=== PATIENT | female | born 1955 | race Two or more races ===

== ENCOUNTER 2025-02-20 09:15 | Inpatient (IN) | payer OTHER ==
[~2025-02-20] VITALS: Ht 154.9 cm; Wt 70.8 kg
[~2025-02-20 09:15] MED LIST: HYDROCHLOROTHIA50 MG PO; INTESTINEX680 MG PO; LEVO-T125 MCG PO; METFORMIN HCL1000 M1 PO; PANTOPRAZOLE SO40 MG PO; TOPROL XL100 M1 PO; TRAM1TAB98 PO; VALSARTAN-HCTZ1 EAC3 PO
[2025-02-20 10:15] VITALS: BP 174/85
[2025-02-20] MEDS ORDERED: ELIQUIS5 MG (10:21)
[2025-02-20] MEDS ORDERED: HYDRALAZINE HCL25 MG (10:22)
[2025-02-20] MEDS ORDERED: ROSUVASTATIN CA10 MG (10:22)
[2025-02-20] MEDS ORDERED: GLIPIZIDE XL2.5 MG (10:22)
[2025-02-20 10:32] LABS: COVID-19 AG NEGATIVE (NEGATIVE)
[2025-02-20 11:52] LABS: ALT/SGPT 28.0 U/L (12-78); AST/SGOT 21.0 U/L (15-37); BILIRUBIN TOTAL 0.71 mg/dL (0.3-1.2); BUN CREA RATIO 25.0 (7.0-25.0); CREATININE SERUM 1.42 mg/dL (0.55-1.02); GFR 36.57; GLOBULINA 3.9 G/DL (2.4-3.5); GLUCOSE FASTING 149.0 mg/dL (65-100); OSMOLALITY SERUM 298.0 MOSM/KG (275-295)
[2025-02-20 11:57] LABS: RH POSITIVE
[2025-02-26] MEDS ORDERED: BUPIVACAINE HCL 30 ML VIAL IJ ONE (11:30)
[2025-02-26] MEDS ORDERED: MORPHINE SULFATE 4 MG/ML CARTRIDGE IV ONE (11:30)
[2025-02-26] MEDS ORDERED: KETOROLAC TROMETHAMINE 60 MG VIAL IM ONE (11:30)
[2025-02-26] MEDS ORDERED: LIDOCAINE HCL 1%/EPINEPHRINE 20ML VIAL IJ ONE (11:30)
[2025-02-26] MEDS ORDERED: TRANEXAMIC ACID 100MG/1ML (1000MG) AMPUL IV ONE (11:45)
[2025-02-26] MEDS ORDERED: POVIDONE-IODINE 118 ML BOTT TOP ONE (11:45)
[2025-02-26] MEDS ORDERED: VANCOMYCIN HCL 1,000 MG VIAL IR ONE (11:45)
[2025-02-26] MEDS ORDERED: ISOPROPYL ALCOHOL 30 ML OUNCE TOP ONE (11:45)
[2025-02-26] MEDS ORDERED: MORPHINE SULFATE 4 MG/ML CARTRIDGE IV PRN (12:00)
[2025-02-26] MEDS ORDERED: SODIUM CHLORIDE 0.45 % 1,000 ML IV SCH (12:00)
[2025-02-26] MEDS ORDERED: OxyCODONE HCL 5 MG TABLET (ROXICODONE) PO PRN (12:00)
[2025-02-26] MEDS ORDERED: ACETAMINOPHEN 500 MG GEL..CAP PO SCH (12:00)
[2025-02-26] MEDS ORDERED: ONDANSETRON HCL 2 MG/ML VIAL IV PRN (12:00)
[2025-02-26] MEDS ORDERED: GABAPENTIN 300 MG CAPSULE PO SCH (17:00)
[2025-02-26] MEDS ORDERED: CEFAZOLIN SODIUM 1,000 MG VIAL IV SCH (17:00)
[2025-02-26 19:49] VITALS: BP 140/75
[2025-02-26 23:52] VITALS: BP 135/59
[2025-02-27 04:00] VITALS: BP 146/73
[2025-02-27 08:18] LABS: BASO % 0.4 % (0.1-1.2); EOS # 0.23 (0.04-0.54); EOS % 2.8 % (0.7-7.0); LYMPH # 1.23 (1.18-3.74); LYMPH % 14.9 % (19.3-53.1); MEAN PLATELET VOLUME 12.10 fl (9.4-12.4); MONO # 0.69 (0.24-0.82); MONO % 8.4 % (4.7-12.5); NEUT # 6.02 (1.56-6.13); NEUT % 73.0 % (34.0-71.1); RED CELL DISTRIBUTION WIDTH 13.2 % (11.6-14.4)
[2025-02-27 08:34] VITALS: BP 138/69
[2025-02-27] MEDS ORDERED: SENNOSIDES 1 TAB TABLET PO SCH (09:00)
[2025-02-27] MEDS ORDERED: APIXABAN 2.5 MG TABLET PO SCH (09:00)
[2025-02-27] MEDS ORDERED: ELIQUIS2.5 MG PO (09:06)
[2025-02-27] MEDS ORDERED: PERCOCET 5-3251 EACH PO (09:06)
[2025-02-27] MEDS ORDERED: DUI500 PO (09:06)
[2025-02-27 12:13] LABS: COVID-19 AG NEGATIVE (NEGATIVE)
[2025-02-27] MEDS ORDERED: SOD FERRIC GLUC COMPLX/SUCROSE 62.5 MG/5 ML AMPUL IV SCH (13:07)
[2025-02-27] MEDS ORDERED: Cyanocobalamin/Mecobalamin 1 TAB.SL SL SCH (13:07)
[2025-02-27 14:08] LABS: ALT/SGPT 23.0 U/L (12-78); AST/SGOT 26.0 U/L (15-37); BILIRUBIN TOTAL 0.49 mg/dL (0.3-1.2); BUN CREA RATIO 20.0 (7.0-25.0); CREATININE SERUM 1.59 mg/dL (0.55-1.02); GFR 32.1; GLOBULINA 3.3 G/DL (2.4-3.5); OSMOLALITY SERUM 293.0 MOSM/KG (275-295)
[2025-02-27 14:11] LABS: GLUCOSE FASTING 215.0 mg/dL (65-100)
[2025-02-27 16:00] VITALS: BP 134/80
[2025-02-28] VITALS: BP 113/63
[2025-02-28 06:45] LABS: BASO % 0.2 % (0.1-1.2); EOS # 0.18 (0.04-0.54); EOS % 1.7 % (0.7-7.0); LYMPH # 1.38 (1.18-3.74); LYMPH % 12.8 % (19.3-53.1); MEAN PLATELET VOLUME 12.20 fl (9.4-12.4); MONO # 1.07 (0.24-0.82); MONO % 9.9 % (4.7-12.5); NEUT # 8.11 (1.56-6.13); NEUT % 74.9 % (34.0-71.1); RED CELL DISTRIBUTION WIDTH 13.2 % (11.6-14.4)
[2025-02-28 08:52] VITALS: BP 116/68
[2025-02-28] MEDS ORDERED: IRON FUM,PS/FOLIC ACID/VITC/B3 1 CAP CAPSULE PO SCH (09:00)
[2025-02-28 16:00] VITALS: BP 138/76
== END 2025-02-28 22:57 | disposition other institution (70) | DRG 470 ==
LOC: O/R 02-26 05:18 → SURH 02-26 07:00 → OB/GYN 02-26 17:56 → O/R 02-26 18:09 → OB/GYN 02-26 18:10
PROVIDERS: ADMIT Orthopaedic Surgery; ATTEND Orthopaedic Surgery
PROC: 0SUC07Z Supplement Right Knee Joint with Autologous Tissue Substitute, Open Approach (ICD-10-PCS; 2025-02-26)
PROC: 0SRC0J9 Replacement of Right Knee Joint with Synthetic Substitute, Cemented, Open Approach (ICD-10-PCS; principal; 2025-02-26 07:00)
DX: M17.11 Unilateral primary osteoarthritis, right knee (principal); M80.061A Age-related osteoporosis with current pathological fracture, right lower leg, initial encounter for fracture; D62 Acute posthemorrhagic anemia; M85.461 Solitary bone cyst, right tibia and fibula; S83.011A Lateral subluxation of right patella, initial encounter